=== PATIENT | female | born 1955 | race Caucasian/White ===

== ENCOUNTER 2017-07-24 14:21 | Day surgery (SDC) | payer OTHER ==
--- NOTE | 2017-07-23 15:50 | GHP ---
[f rep st] PREOP HISTORY AND PHYSICAL DATE OF SURGERY: 07/24/2017 CHIEF COMPLAINT: Bilateral forefoot pain. HISTORY OF PRESENT ILLNESS: Patient is a 62-year-old with history of bilateral forefoot pain. Her pain is worsening with ambulation, and has been progressive over some time, despite appropriate nonoperative treatment course. MEDICINES: Include carvedilol, estradiol, fluorouracil, gabapentin, lorazepam, nabumetone, ondansetron. ALLERGIES: Bee venom. PAST SURGICAL HISTORY: Positive for cardiac catheterization and GI surgery. PAST MEDICAL HISTORY: Positive for coronary artery disease, status post cardiac catheterization, and cancer. SOCIAL HISTORY: Positive for cigarette smoking of 1 pack. PHYSICAL EXAM: GENERAL APPEARANCE: She is overall appearing in good health with no acute distress. HEENT: Head is normocephalic. Pupils equal, round, reactive to light. Extraocular eye movements intact. NECK: Supple. No JVD or lymphadenopathy. CHEST: Clear to auscultation. HEART: Regular rate and rhythm. No murmurs or gallops. ABDOMEN: Soft, nontender, nondistended. No organomegaly. GENITAL/RECTAL/BREASTS: Deferred. EXTREMITIES: Revealed elevated 1st rays bilaterally with gastrocnemius contracture. IMPRESSION: 1. Bilateral incompetent 1st rays. 2. Bilateral gastrocnemius contracture. PLAN: The patient is scheduled to undergo bilateral gastrocnemius recession, bilateral medial cuneiform osteotomies. /[id number]/MODL MTDD
[~2017-07-24 14:21] MED LIST: ceFAZolin 2 GM/DEXTROSE 100 ML IV ONE
[2017-07-24 15:04] VITALS: PULSE 64
[2017-07-24] MEDS ORDERED: ceFAZolin 2 GM/SWFI 20 ML SYR IVP ONE (15:13)
[2017-07-24] MEDS ORDERED: MIDAZOLAM 2 MG/2 ML VIAL IVP ONE (16:00)
--- NOTE | 2017-07-24 16:00 | PDANEPAE ---
ANE History of Present Illness 62 yo for bilateral gatroc recessions ANE Past Medical History - Cardiovascular History Hx Hypertension: No Hx Arrhythmias: Yes Hx Chest Pain: No Hx Coronary Artery / Peripheral Vascular Disease: No Hx CHF / Valvular Disease: No Hx Palpitations: No Cardiovascular History Comment: hx AVNRT. dread-carditis 2016 - Pulmonary History Hx COPD: No Hx Asthma/Reactive Airway Disease: No Hx Recent Upper Respiratory Infection: No Hx Oxygen in Use at Home: No Hx Sleep Apnea: Yes Sleep Apnea Screening Result - Last Documented: Positive Pulmonary History Comment: hx sleep apnea with CPAP -does not use - Neurologic History Hx Cerebrovascular Accident: No Hx Seizures: No Hx Dementia: No - Endocrine History Hx Diabetes: No - Renal History Hx Renal Disorders: No - Liver History Hx Hepatic Disorders: No - Neurological & Psychiatric Hx Hx Neurological and Psychiatric Disorders: Yes Neurological / Psychiatric History Comment: depression - Cancer History Hx Cancer: No Cancer History Comment: basel cell face - Congenital Disorder History Hx Congenital Disorders: No - GI History Hx Gastrointestinal Disorders: Yes Gastrointestinal History Comment: IBS - Other Health History Other Health History: B neuromas feet - Chronic Pain History Chronic Pain: Yes - Surgical History Prior Surgeries: Hysterectomy. cervical fusion. open rosanne. lumpectomy ANE Review of Systems Review of Systems: - Exercise capacity METS (RN): 4 METS ANE Patient History - Allergies Allergies/Adverse Reactions: No Known Allergies Allergy (Unverified 07/20/17 12:34) - Home Medications Home medications: home medication list seen and reviewed Home Medications: Coreg DAILY 07/17/17 [Last Taken 07/23/17 08:00] Estradiol DAILY 07/17/17 [Last Taken 07/23/17 08:00] Famotidine DAILY 07/17/17 [Last Taken 07/24/17 09:00] GABAPENTIN DAILY 07/17/17 [Last Taken 07/23/17 08:00] Herbal Drugs DAILY 07/17/17 [Last Taken 07/23/17 09:00] IRON DAILY 07/17/17 [Last Taken 07/23/17 09:00] LORAZEPAM DAILY 07/17/17 [Last Taken Unknown] Aspirin 325 mg (*) BID 07/20/17 [Last Taken 07/20/17] Fluorouracil 07/20/17 [Last Taken 07/23/17 08:00] [place] 10-325 Tablet PRN 07/20/17 [Last Taken 07/23/17] Prozac 20 MG (*) DAILY06 07/20/17 [Last Taken 07/23/17 08:00] - NPO status NPO Status: no food or drink >8 hours NPO Since - Liquids (Date): 07/24/17 NPO Since - Liquids (Time): 10:00 NPO Since - Solids (Date): 07/23/17 NPO Since - Solids (Time): 20:00 - Smoking Hx Smoking Status: Current every day smoker - Family Anes Hx Family Hx Anesthesia Complications: none ANE Labs/Vital Signs - Vital Signs Blood Pressure: 131/81 Heart Rate: 64 Respiratory Rate: 16 O2 Sat (%): 96 Height: 5 ft 7 in Weight: 73.936 kg ANE Physical Exam - Airway Neck exam: FROM Mallampati Score: Class 2 Mouth exam: normal dental/mouth exam - Pulmonary Pulmonary: no respiratory distress - Cardiovascular Cardiovascular: regular rate and rhythym - ASA Status ASA Status: II ANE Anesthesia Plan Anesthesia Plan: GA w LMA
--- NOTE | 2017-07-24 16:02 | POSTOPPROG ---
Post Op Note Date of Operation: 07/24/17 Surgeon: Terrell Correa Anesthesia: GET(General Endotracheal) Pre-op Diagnosis: BL gastroc contracture, BL incompetant 1st ray Post-op Diagnosis: Same Procedure: BL gastroc recession, BL medial cuneiform osteotomy Inf/Abcess present in the surg proc area at time of surgery?: No EBL: Minimal Complications: None
[2017-07-24] MEDS ORDERED: BUPIVACAINE 0.5% 30 ML SDV ONE (16:04)
[2017-07-24] MEDS ORDERED: fentaNYL 100 MCG/2 ML INJ ONE ×3 (16:07→17:46)
[2017-07-24] MEDS ORDERED: PROPOFOL/EMULSION 500 MG/50 ML BOTTLE IV ONE (16:07)
[2017-07-24] MEDS ORDERED: HYDROmorphONE/DILAUDID 1 MG/ML INJ IVP PRN (17:26)
[2017-07-24] MEDS ORDERED: NALOXONE HCL 0.4 MG/ML INJ IVP PRN (17:26)
[2017-07-24] MEDS ORDERED: HYDROCODONE/APAP 5/325 TAB PO PRN (17:26)
[2017-07-24] MEDS ORDERED: ONDANSETRON 4 MG/2 ML VIAL IVP PRN (17:26)
[2017-07-24] MEDS ORDERED: OXYCODONE/APAP 5/325 TAB PO PRN (17:26)
[2017-07-24 17:41] VITALS: TEMP 97.3
--- NOTE | 2017-07-24 17:42 | POSTANESTH ---
Post Anesthetic Evaluation Cardiovascular Status: Normal, Stable Respiratory Status: Normal, Stable Level of Consciousness/Mental Status: Can Participate in Eval Pain Control: Adequate, Prn Tx Ordered Nausea/Vomiting Control: Adequate, Prn Tx Ordered Complications Possibly Related to Anesthesia: None Noted
[2017-07-24] MEDS: fentaNYL 100 MCG/2 ML INJ IVP PRN ×2 (17:47→17:56)
[2017-07-24] MEDS ORDERED: OXYCODONE/APAP 5/325 TAB ONE ×2 (18:00→18:02)
[2017-07-24 18:19] VITALS: RESP 16
[2017-07-24 19:15] VITALS: BP 122/77; O2SAT 92
--- NOTE | 2017-07-25 15:46 | GOP ---
[f rep st] OPERATIVE REPORT DATE OF OPERATION: 07/24/2017 SURGEON: Terrell Correa MD ANESTHESIA: General. PREOPERATIVE DIAGNOSIS: 1. Bilateral gastrocnemius contracture. 2. Bilateral incompetent 1st ray wound. 3. Bilateral metatarsalgia. POSTOPERATIVE DIAGNOSIS: 1. Bilateral gastrocnemius contracture. 2. Bilateral incompetent 1st ray wound. 3. Bilateral metatarsalgia. PROCEDURE PERFORMED: 1. Bilateral medial cuneiform plantar flexion osteotomy ([place]). 2. Bilateral gastrocnemius recessions. 3. Intraoperative use of fluoroscopy. FINDINGS: ESTIMATED BLOOD LOSS: Minimal.nerve DESCRIPTION OF PROCEDURE: The patient was brought to the operating after IV antibiotics were adminis tered. She was placed in a supine position and general anesthetic was administered. Bilateral thigh t ourniquets were applied and bilateral lower extremities were prepped and draped in standard sterile f ashion. Attention was directed toward the left. After marking the incision and Asad wrap exsanguination, the t ourniquet was inflated to 250. A gastrocnemius recession was performed. A longitudinal incision was m magdy along the medial aspect of the lower leg at the level of the mid aspect of the gastrocnemius musc ulature. Skin and subcutaneous tissue were sharply incised. Sharp dissection was carried through the superficial and posterior compartment fascia in line with the skin incision. The gastrocnemius soleus interval was bluntly dissected. Utilizing a speculum for retraction, the anterior tib in the gastroc was transversely incised. Satisfactory dorsiflexion with the knee extended was achieved. The subcuta neous tissue was closed with 3-0 Vicryl suture in interrupted fashion. Skin closed with 4-0 nylon int errupted sutures. Attention was then directed towards the medial cuneiform. A longitudinal incision was made along the dorsal aspect of the medial cuneiform. adjacent to the longus tendon. The dors al aspect of the cuneiform was identified. After marking the proposed site of the osteotomy with a Ki rschner wire and confirming it fluoroscopically, a saw was utilized to make a slightly oblique osteot sarita in the medial cuneiform. The osteotomy was gapped open with an osteotome. A cortical cancellous a llograft ([place]) was impacted into place. A 2.4 mm cortical screw was placed in "position mode" in a dorsal distal to plantar proximal direction. Fluoroscopic views confirmed favorable osteotomy and h ardware positions. The tissue over the extensor hallucis longus tendon was closed with 2-0 Vicryl sut ure in interrupted fashion. Subcutaneous tissue was closed with 3-0 Vicryl suture in interrupted fash ion. Skin closed with 4-0 nylon interrupted sutures. Half percent Marcaine without epinephrine was in jected in the wound sites. The tourniquet was deflated. Attention was then directed toward the right leg. The gastrocnemius recession and medial cuneiform osteotomy were performed in an identical manner . The wounds were dressed with sterile Adaptic, 4 x 4, and Opsite. Kerlix and Asad wrap were applied. The patient was taken to the recovery room, extubated, in stable condition postoperatively. All spong e, needle, and instrument counts were reported as being correct. DRAINS: None. COMPLICATIONS: None. PLAN: The patient will be discharged home weightbearing as tolerated in fracture boots. /[id number]/MODL
== END 2017-07-24 18:50 | disposition home or self-care (01) ==
LOC: FSGY 14:21
PROVIDERS: ATTEND Orthopaedic Surgery Foot and Ankle Surgery
PROC: 0LNN0ZZ Release Right Lower Leg Tendon, Open Approach (ICD-10-PCS; principal; 2017-07-24 15:45)
PROC: 0Q8L0ZZ Division of Right Tarsal, Open Approach (ICD-10-PCS; principal; 2017-07-24 15:45)
PROC: 0LNP0ZZ Release Left Lower Leg Tendon, Open Approach (ICD-10-PCS; principal; 2017-07-24 15:45)
PROC: 0Q8M0ZZ Division of Left Tarsal, Open Approach (ICD-10-PCS; principal; 2017-07-24 15:45)
DX: M62.461 Contracture of muscle, right lower leg (principal); M62.462 Contracture of muscle, left lower leg; M77.41 Metatarsalgia, right foot; M77.42 Metatarsalgia, left foot; M21.6X1 Other acquired deformities of right foot; M21.6X2 Other acquired deformities of left foot; F33.1 Major depressive disorder, recurrent, moderate; R73.03 Prediabetes; G47.33 Obstructive sleep apnea (adult) (pediatric); F17.210 Nicotine dependence, cigarettes, uncomplicated; E55.9 Vitamin D deficiency, unspecified; F41.3 Other mixed anxiety disorders; I25.10 Atherosclerotic heart disease of native coronary artery without angina pectoris; Z82.49 Family history of ischemic heart disease and other diseases of the circulatory system; Z98.1 Arthrodesis status
CPT/HCPCS: C1713; C1762; J0690; J2250; J2704; J3010